=== PATIENT | female | born 1955 | race Caucasian/White ===

== ENCOUNTER → 2016-07-29 | Outpatient (CLI) | payer BC ==
--- NOTE | 2016-07-29 15:31 | REPMRS ---
Patient History The patient states she had a clinical breast exam in 07/2016. Patient is postmenopausal. No known family history of cancer. Implants in both breasts, 2005. Digital Woman Screen Mammo: July 29, 2016 - Exam #: [id number] Bilateral CC and MLO view(s) were taken. Technologist: Natalie Huizar Technologist Prior study comparison: July 28, 2015, digital woman screen mammo performed at [facility]. July 24, 2014, digital woman screen mammo performed at [facility]. July 24, 2013, digital woman screen mammo performed at [facility]. FINDINGS: There are scattered fibroglandular densities. The visualized implant margins are smooth. Breast parenchymal density pattern is essentially symmetric. No dominant mass, clustered microcalcification, or archetectural distortion is evident on either side. No significant changes when compared with prior studies. ASSESSMENT: BI-RADS/ACR category 2 mammogram. Benign finding(s). Recommendation Routine screening mammogram of both breasts in 1 year (for women over age 40). Electronically Signed By: Rodolfo Greenberg MD 07/29/16 [id number]
== END | disposition home or self-care (01) ==
LOC: M WHC 13:10
PROVIDERS: ATTEND Nurse Practitioner Family
DX: Z12.31 Encounter for screening mammogram for malignant neoplasm of breast (principal); Z78.0 Asymptomatic menopausal state; Z98.82 Breast implant status

== ENCOUNTER → 2017-01-30 | Outpatient (CLI) | payer BC ==
--- NOTE | 2017-01-31 04:30 | REP ---
Clinical: Pelvic pain and enlarged uterus by physical examination . Technique: Transabdominal pelvic ultrasound followed by transvaginal examination for better evaluation of the endometrium and adnexa. Findings: Bladder is unremarkable and measures 9.9 x 9.2 x 2.9 cm . Enlarged heterogeneous myomatous uterus measures 9.1 x 6.7 x 8.6 cm. The endometrial complex measures 4.4 mm thickness and a 1.4 cm focal area of debris versus polyp cannot be excluded or differentiated. Submucosal lower uterine segment fibroid measures 2.4 cm maximal diameter. Right posterior subserosal fibroid towards the fundus measures 2.8 cm maximal diameter. Right anterior subserosal fibroid towards the fundus measures 1.6 cm maximal diameter. Left posterior subserosal fibroid measures 2.1 cm maximal diameter. Left anterior subserosal fibroid measures 2.5 cm maximal diameter. Bilateral ovaries are normal in appearance. Right ovary measures 3.7 x 2.8 x 2.5 cm with 2.1 cm physiologic cyst. Left ovary measures 4.0 x 2.4 x 3.4 cm. No pelvic free fluid or adnexal mass lesion identified . Impression: 1. heterogeneous, enlarged, myomatous uterus as described above. 2. Cannot exclude 1.4 cm endometrial polyp versus focal endocervical debris. Signed by Raad López MD 01/31/2017 04:22 A
== END ==
LOC: M WHC 09:49
PROVIDERS: ATTEND Nurse Practitioner Family
DX: N85.2 Hypertrophy of uterus (principal)

== ENCOUNTER → 2017-05-25 | Outpatient (CLI) | payer BC ==
--- NOTE | 2017-05-25 16:51 | REP ---
Clinical: Myomatous uterus. Technique: Transabdominal pelvic ultrasound followed by transvaginal examination for better evaluation of the endometrium and adnexa with color Doppler evaluation of the ovaries. Comparison: 01/30/2017. Findings: Bladder measures approximately 9.0 x 8.6 x 2.9 cm. Heterogeneous enlarged anteverted myomatous uterus measures greater than 10.5 x 7.1 x 8.7 cm. A significant amount of endocervical fluid is appreciated which distends the endometrial canal the endometrial complex measures approximately 9.7 mm excluding fluid. Few discrete fibroids are appreciated including 1.8 cm and 3.6 cm right intramural fibroids as well as 3.3 cm left intramural fibroid. Further less conspicuous myomatous changes are appreciated but difficult to definitively delineate or measure. Right ovary is normal in appearance and vascularity. Right ovary measures 2.6 x 2.6 x 2.4 cm and includes 1.8 cm involuting follicle; RI = 0.65. Left ovary versus pedunculated fibroid in the left adnexa measures 3.3 x 2.9 x 2.7 cm. Impression: Enlarged myomatous heterogeneous uterus with large amount of endocervical fluid appreciated. Findings are relatively abnormally given the patient's age and require correlation. Signed by Raad López MD 05/25/2017 04:42 P
== END ==
LOC: M RAD 15:41
PROVIDERS: ATTEND Obstetrics & Gynecology
DX: D25.9 Leiomyoma of uterus, unspecified (principal); N93.9 Abnormal uterine and vaginal bleeding, unspecified

== ENCOUNTER → 2017-06-27 | Outpatient (CLI) | payer BC ==
[~2017-06-27] MED LIST: PROHANCE 279.3MG/ML 15ML VIAL (A9576) As Ordered ONE; PROHANCE 279.3MG/ML 5ML VIAL (A9576) As Ordered ONE
--- NOTE | 2017-06-28 16:28 | REP ---
MRI pelvis without and with IV gadolinium: History: Fibroid uterus. Postmenopausal vaginal bleeding. Comparison sonography is from May 25, 2017 and January 30, 2017. Gadolinium enhancement dose of 17 mL of intravenous ProHance. Findings: Axial, oblique coronal and sagittal imaging planes are utilized. T1 and T2-weighted sequences include spin-echo, fast spin echo, inversion recovery, and diffusion weighted images at low and high V values as well as ADC images. MRI findings: An enlarged retroverted retroflexed fibroid uterus is seen. Overall uterine dimensions are 10.2 by 8.4 by 9.6 cm. There is a moderate hydrometra with distension of the fundal endometrial cavity. This contains T1 hyperintense, T2 hyperintense proteinaceous fluid. On T2-weighted scans there are typical low T2 signal intensity submucosal and intramural fibroids scattered about the uterus. The largest of these is on the right side of the lower uterine segment and cervix measuring 2.6 cm. There is a right fundal fibroid lesion measuring 1.9 cm in diameter. There are five or six of these predominantly subserosal fibroids. Pedunculated narrow pedicle fibroids are seen in the posterior subserosal surface of the uterus on the left side including a fibroid lesion measuring 3.7 by 2.9 cm. There are five or six of these pedunculated narrow pedicle subserosal fibroids along the surface of the uterus. The urinary bladder is displaced and compressed anteriorly. There is evidence of a hemorrhagic cyst in the right ovary measuring 3.0 cm x 2.2 by 1.6 cm. This has a hemosiderin ring around its periphery. The left ovary is unremarkable. There is no evidence of pelvic adenopathy. T1 and T2-weighted scans of the uterus demonstrate a somewhat eccentric polypoid mass effect along the right side anterior aspect of the endometrial and endocervical cavity. On high V value, diffusion weighted scans this shows heterogeneous hyperintensity in an area measuring 3.4 cm. There is low signal intensity on corresponding ADC images indicating restricted diffusion here. This area is isointense with uterine myometrium on unenhanced T1-weighted scans and there is heterogeneous slightly decreased area of enhancement corresponding to this on postcontrast images. T2-weighted coronal scans demonstrate eccentric thickening of the endometrium with mass effect approximately 3-4 cm in length along the uterus. This combined with the hydrometra suggests an obstructive endometrial neoplasm. These changes are not considered typical of a fibroid. The other fibroids show no evidence of either restricted or facilitated diffusion. Impression: Enlarged retroverted retroflexed fibroid uterus. The additional finding of moderate hydrometra and endometrial mass effect showing restricted diffusion in the lower uterine segment are very suggestive of endometrial malignancy. No adenopathy or ascites seen. Multiple benign-appearing fibroids are noted including several pedunculated subserosal fibroids. Signed by Toy Greenberg MD 06/28/2017 05:00 P
== END ==
LOC: M RAD 13:54
PROVIDERS: ATTEND Obstetrics & Gynecology
DX: D25.9 Leiomyoma of uterus, unspecified (principal); N95.0 Postmenopausal bleeding
CPT/HCPCS: 72197; A9576

== ENCOUNTER → 2017-07-31 | Outpatient (REF) | payer BC | LOC: M SFHCWAGY 15:08 | DX: Z12.4 Encounter for screening for malignant neoplasm of cervix (principal); Z12.31 Encounter for screening mammogram for malignant neoplasm of breast ==

== ENCOUNTER → 2017-07-31 | Outpatient (CLI) | payer BC | LOC: M WHC 14:31 | DX: Z12.31 Encounter for screening mammogram for malignant neoplasm of breast (principal) ==

== ENCOUNTER → 2017-11-09 | Outpatient (CLI) | payer BC | LOC: M ONCR 10:25 | DX: C54.1 Malignant neoplasm of endometrium (principal) | CPT/HCPCS: G0463 ==

== ENCOUNTER → 2018-02-20 | Outpatient (CLI) | payer BC | LOC: M ONCR 13:09 | DX: C54.1 Malignant neoplasm of endometrium (principal) | CPT/HCPCS: G0463 ==

== ENCOUNTER 2018-03-02 09:49 | Outpatient (RCR) | payer BC | END 2018-03-09 | LOC: M ONCR 09:49 | DX: C54.1 Malignant neoplasm of endometrium (principal) | CPT/HCPCS: 77334 ==

== ENCOUNTER 2018-03-14 09:30 | Outpatient (RCR) | payer BC | END 2018-04-08 | LOC: M ONCR 03-15 09:30 | DX: C54.9 Malignant neoplasm of corpus uteri, unspecified (principal) | CPT/HCPCS: 77300 ==

== ENCOUNTER 2018-04-09 15:10 | Outpatient (RCR) | payer BC | END 2018-05-09 | LOC: M ONCR 04-10 15:28 | DX: C54.9 Malignant neoplasm of corpus uteri, unspecified (principal) | CPT/HCPCS: 77336 ==

== ENCOUNTER → 2018-05-30 | Outpatient (CLI) | payer BC ==
[2018-05-30 18:14] LABS: BLOOD UREA NITROGEN 21 MG/DL (7-18)
[2018-05-30 18:14] LABS: CREATININE FOR GFR 0.84 MG/DL (0.55-1.30); GLOMERULAR FILTRATION RATE > 60.0 (>45)
== END ==
LOC: M ONCR 14:37
DX: C54.9 Malignant neoplasm of corpus uteri, unspecified (principal)
CPT/HCPCS: 82565

== ENCOUNTER → 2018-06-07 | Outpatient (CLI) | payer BC ==
[~2018-06-07] MED LIST changes: +GASTROGRAFIN SOLUTION 30ML (Q9963) As Ordered; +ISOVUE-370 76% 100ML VIAL (Q9967) As Ordered; -PROHANCE 279.3MG/ML 15ML VIAL (A9576) As Ordered ONE; -PROHANCE 279.3MG/ML 5ML VIAL (A9576) As Ordered ONE
== END ==
LOC: M RAD 13:01
DX: C54.1 Malignant neoplasm of endometrium (principal); Z90.710 Acquired absence of both cervix and uterus; R91.8 Other nonspecific abnormal finding of lung field
CPT/HCPCS: Q9963

== ENCOUNTER → 2018-06-19 | Outpatient (CLI) | payer BC ==
[~2018-06-19] MED LIST changes: -GASTROGRAFIN SOLUTION 30ML (Q9963) As Ordered
== END ==
LOC: M RAD 13:51
DX: C54.1 Malignant neoplasm of endometrium (principal); Z97.8 Presence of other specified devices
CPT/HCPCS: Q9967

== ENCOUNTER 2018-07-30 14:13 | Outpatient (RCR) | payer BC | END 2018-08-09 | LOC: M ONCR 14:13 | PROVIDERS: ATTEND Radiology Radiation Oncology | DX: C54.1 Malignant neoplasm of endometrium (principal) ==

== ENCOUNTER 2018-09-10 15:09 | Outpatient (RCR) | payer BC | END 2018-10-07 | LOC: M ONCR 15:09 | PROVIDERS: ATTEND Radiology Radiation Oncology | DX: C54.1 Malignant neoplasm of endometrium (principal) ==

== ENCOUNTER → 2018-10-10 | Outpatient (CLI) | payer BC ==
--- NOTE | 2018-10-10 11:58 | REPMRS ---
Patient History The patient states she had a clinical breast exam in 10/2018. Patient is postmenopausal, has history of endometrial cancer at age 61, and had previous chemotherapy at age 61. No known family history of cancer. Implants in both breasts, 2005. 3D TOMOSYNTHESIS WAS PERFORMED. Digital Woman Screen Mammo: October 10, 2018 - Exam #: [id number] Bilateral MLO, CC, CCID, and MLOID view(s) were taken. Technologist: Karo Jean, Technologist Prior study comparison: July 31, 2017, digital woman screen mammo performed at [facility]. July 29, 2016, digital woman screen mammo performed at [facility]. FINDINGS: There are scattered fibroglandular densities. There has been no change in the appearance of the mammogram from the prior studies. There is a mild amount of residual fibroglandular tissue which is fairly symmetric. There is no interval development of dominant mass, architectural distortion, or clustered microcalcification suggestive of malignancy. Assessment: BI-RADS/ACR category 1 mammogram. Negative Mammogram. Recommendation Routine screening mammogram in 1 year (for women over age 40). This mammogram was interpreted with the aid of an FDA-approved computer-aided dectection system. Electronically Signed By: Richard Vanegas MD 10/10/18 [id number]
== END ==
LOC: M WHC 09:50
PROVIDERS: ATTEND Nurse Practitioner Family
DX: Z12.31 Encounter for screening mammogram for malignant neoplasm of breast (principal)

== ENCOUNTER → 2018-10-10 | Outpatient (REF) | payer BC ==
[2018-10-13 15:33] LABS: HPV HYBRID CAPTURE II Negative (Negative)
== END ==
LOC: M SFHCWAGY 10:15
PROVIDERS: ATTEND Nurse Practitioner Family
DX: Z12.4 Encounter for screening for malignant neoplasm of cervix (principal)
CPT/HCPCS: 87624; G0123

== ENCOUNTER 2018-10-29 15:40 | Outpatient (RCR) | payer BC | END 2018-11-06 | LOC: M ONCR 15:40 | PROVIDERS: ATTEND Radiology Radiation Oncology | DX: C54.1 Malignant neoplasm of endometrium (principal) ==

== ENCOUNTER 2018-12-11 09:06 | Day surgery (SDC) | payer BC ==
[~2018-12-11] VITALS: Ht 162.6 cm; Wt 80.6 kg
[~2018-12-11 09:06] MED LIST changes: +CETI5SOL3 PO; -ISOVUE-370 76% 100ML VIAL (Q9967) As Ordered; +ZOLO50TA PO
[2018-12-11] MEDS ORDERED: NS 1,000 ML IV ONE (09:30)
[2018-12-11] MEDS ORDERED: LIDOCAINE 2% INJ 100 MG/5 ML SDV (FOR ANES.) As Ordered ONE (10:43)
[2018-12-11] MEDS ORDERED: PROPOFOL 200 MG/20 ML VIAL As Ordered ONE (10:43)
--- NOTE | 2018-12-11 10:55 | ROOR ---
Patient Name: Ashley Self Procedure Date: 12/11/2018 10:04 AM Date of : 1955 Age: 62 Room: [facility] Gender: Female Note Status: Finalized Procedure: Colonoscopy Indications: Screening for colorectal malignant neoplasm Providers: Faustino Carrero MD Referring MD: Frida Davila NP Requesting Provider: Medicines: Monitored Anesthesia Care Complications: No immediate complications. Procedure: Pre-Anesthesia Assessment: - Prior to the procedure, a History and Physical was performed, and patient medications and allergies were reviewed. The patient is competent. The risks and benefits of the procedure and the sedation options and risks were discussed with the patient. All questions were answered and informed consent was obtained. Patient identification and proposed procedure were verified by the physician, the nurse and the anesthesiologist in the procedure room. Mental Status Examination: alert and oriented. Airway Examination: normal oropharyngeal airway and neck mobility. Respiratory Examination: clear to auscultation. CV Examination: normal. Prophylactic Antibiotics: The patient does not require prophylactic antibiotics. Prior Anticoagulants: The patient has taken no previous anticoagulant or antiplatelet agents. ASA Grade Assessment: II - A patient with mild systemic disease. After reviewing the risks and benefits, the patient was deemed in satisfactory condition to undergo the procedure. The anesthesia plan was to use monitored anesthesia care (MAC). Immediately prior to administration of medications, the patient was re-assessed for adequacy to receive sedatives. The heart rate, respiratory rate, oxygen saturations, blood pressure, adequacy of pulmonary ventilation, and response to care were monitored throughout the procedure. The physical status of the patient was re-assessed after the procedure. The Colonoscope was introduced through the anus and advanced to the terminal ileum, with identification of the appendiceal orifice and IC valve. The colonoscopy was performed without difficulty. The patient tolerated the procedure well. The quality of the bowel preparation was good. The terminal ileum, ileocecal valve, appendiceal orifice, and rectum were photographed. Scope insertion time was 3 minutes. Scope withdrawal time was 12 minutes. The total duration of the procedure was 15 minutes. Findings: The perianal and digital rectal examinations were normal. The terminal ileum appeared normal. Two sessile polyps were found in the transverse colon. The polyps were 8 to 12 mm in size. These polyps were removed with a hot snare. Resection and retrieval were complete. To close a defect after polypectomy, two hemostatic clips were successfully placed. There was no bleeding at the end of the procedure. Verification of patient identification for the specimen was done by the physician and nurse using the patient's name, date and medical record number. Estimated blood loss was minimal. A 5 mm polyp was found in the descending colon. The polyp was sessile. The polyp was removed with a cold snare. Resection and retrieval were complete. Two sessile polyps were found in the rectum. The polyps were 4 to 6 mm in size. These polyps were removed with a cold snare. Resection and retrieval were complete. Multiple small-mouthed diverticula were found from sigmoid to transverse colon. There was no evidence of diverticular bleeding. Non-bleeding external and internal hemorrhoids were found during retroflexion. The hemorrhoids were moderate. Impression: - The examined portion of the ileum was normal. - Two 8 to 12 mm polyps in the transverse colon, removed with a hot snare. Resected and retrieved. Clips were placed. - One 5 mm polyp in the descending colon, removed with a cold snare. Resected and retrieved. - Two 4 to 6 mm polyps in the rectum, removed with a cold snare. Resected and retrieved. - Moderate diverticulosis from sigmoid to transverse colon. There was no evidence of diverticular bleeding. - Non-bleeding external and internal hemorrhoids. Recommendation: - Patient has a contact number available for emergencies. The signs and symptoms of potential delayed complications were discussed with the patient. Return to normal activities tomorrow. Written discharge instructions were provided to the patient. - High fiber diet. - Continue present medications. - Await pathology results. - Repeat colonoscopy in 3 - 5 years for surveillance based on pathology results. - Based on the biopsy results you will receive a phone call from GI clinic in 2-3 weeks to review the pathology results AND/OR your results will be faxed to your Primary care physician. - Return to primary care physician. Faustino Carrero MD Faustino Carrero MD 12/11/2018 10:55:03 AM Electronically signed by Faustino Carrero MD Number of Addenda: 0 Note Initiated On: 12/11/2018 10:04 AM Estimated Blood Loss: Estimated blood loss was minimal.
[2018-12-11 11:15] VITALS: BP 113/58
== END 2018-12-11 11:35 | disposition home or self-care (01) ==
LOC: M OPP 09:06
PROVIDERS: ATTEND Internal Medicine Gastroenterology
DX: Z12.11 Encounter for screening for malignant neoplasm of colon (principal); K64.0 First degree hemorrhoids; D12.3 Benign neoplasm of transverse colon; K62.1 Rectal polyp; D12.4 Benign neoplasm of descending colon; K57.30 Diverticulosis of large intestine without perforation or abscess without bleeding; Z79.899 Other long term (current) drug therapy; F17.210 Nicotine dependence, cigarettes, uncomplicated

== ENCOUNTER → 2019-02-15 | Outpatient (CLI) | payer BC ==
[~2019-02-15] MED LIST changes: +GASTROGRAFIN SOLUTION 30ML (Q9963) As Ordered ONE; +ISOVUE-370 76% 100ML VIAL (Q9967) As Ordered ONE
--- NOTE | 2019-02-16 09:59 | REP ---
CT ABDOMEN AND PELVIS WITH ORAL AND IV CONTRAST: 02/15/2019. Clinical history: Follow-up endometrial carcinoma. Palpable mass left lower quadrant port site. Comparison: CT 06/07/2018. Technique: Oral Gastrografin mixture with two doses per our protocol followed by bolus of 100 ml Isovue 370 with venous and delayed phase imaging. Coronal and sagittal reconstructions provided. Findings: The lung bases show minor dependent atelectatic change without infiltrate or effusion. The inferior aspects of breast implants are noted. Heart size not enlarged. There is no pericardial thickening or effusion. No hiatal hernia. There is no hepatomegaly or splenomegaly. No hepatic mass or biliary dilatation. I see no ascites. Gallbladder shows no calcified stone or mass. Pancreas shows no mass, ductal dilatation or inflammatory change. Adrenal glands are normal. The right kidney shows no hydronephrosis, stone, mass or cyst. No hydroureter. The left kidney shows delayed function with less contrast enhancement. There is some mild hydronephrosis and hydroureter which is seen down to the level of the left iliac adenopathy. This is causing partial obstruction and delayed/diminished function. This is a new finding entirely since the previous May examination. Abdominal portion of the colon without mass, wall thickening, colitis or diverticulitis. Small bowel loops contrast filled without air-fluid levels or definite obstruction. I see no perforation or free air. In the subcutaneous fat of the abdominal wall superficial to the left rectus abdominis muscle, there is a new 3.5 x 2.6 x 3.1 cm solid mass. It is slightly less dense centrally. CT attenuation values are in the 50s. This is similar to adjacent muscle and confirms solid lesion. No abnormal thickening of that muscle. There is a plain separation between the mass and the fascia of the rectus abdominis. The bone windows show degenerative disc changes at L5-S1, less at other levels and no spondylolysis or spondylolisthesis. No destructive lesions. The lower ribs visible were unremarkable. CT pelvis: The sacrum and SI joints, iliac bones, ischia, acetabuli and pubic symphysis show only minimal degenerative changes and no destructive lesions or fractures. Small bowel loops in the pelvis are fluid filled without abnormal dilatation. Abdominal and pelvic portions of colon without any acute finding. There is asymmetric appearance to the left iliac region where there are nodes adjacent to the internal and external iliac arteries and veins. These appear to be the cause for hydronephrosis newly enveloped on that left side. I do not see changes in the interval at the surgical site from hysterectomy however some mild stranding in the fat in this region, somewhat less than on the previous study. No ventral or inguinal hernia nor pathologic sized inguinal adenopathy. Bladder without mass, wall thickening or stone. Visualized distal ureters without dilatation or stone. Impression: 1. There is a new subcutaneous soft tissue mass in the anterior left abdominal wall about the level of the iliac crest and just above it, but immediately superficial to the rectus fascia on that left side. It is at and just above that iliac crest at the level of the aortic bifurcation. This is a 3.5 cm solid lesion and highly suspicious for malignancy. 2. New left sided hydronephrosis and hydroureter to the level of the iliac nodes in the left pelvis at and just above the takeoff of the internal iliac from external iliac artery. This adenopathy contributes to the hydronephrosis. There is no stone. Delayed function/enhancement of that left kidney, new from the previous study. Right kidney collecting system, ureter normal. 3. Postoperative changes in the pelvis with no definite new mass at the vaginal cuff or worsening postoperative changes. Electronically Signed by Won Arguello MD 02/16/2019 10:12 A
== END ==
LOC: M RAD 12:51
PROVIDERS: ATTEND Obstetrics & Gynecology Gynecologic Oncology
DX: C54.1 Malignant neoplasm of endometrium (principal); N13.39 Other hydronephrosis; N13.4 Hydroureter
CPT/HCPCS: 74177; Q9963; Q9967

== ENCOUNTER → 2019-05-21 | Outpatient (CLI) | payer BC ==
--- NOTE | 2019-05-22 04:07 | REP ---
Clinical: Endometrial carcinoma. Comparison: 02/15/2019. Technique: Axial contrast enhanced images from the lung bases to the pubic symphysis using oral (per protocol) and 100 ml Isovue 370 intravenous contrast material with delayed images of the abdomen as well as coronal and sagittal re-formations. Findings: Metastatic focus in the subcutaneous tissues superficial to the left rectus muscle is again identified and appears minimally increased in size. Metastatic focus in the underlying left rectus muscle measures 2.6 cm maximal diameter (image 85). Metastatic lesion in the right gabi pelvis measures 2.8 cm maximal diameter (image 115) possibly pathologic lymph node. Retroperitoneal adenopathy along the left gabi pelvis at the level of the left common iliac artery extending inferiorly along the left pelvic sidewall (images 93 - 110) noted. Liver, spleen, pancreas, gallbladder, bilateral adrenal glands and right kidney are normal. Left kidney demonstrates ureteral stent in satisfactory position and previously noted hydronephrosis has resolved. The enteric system is without obstruction or acute inflammatory process. Pelvis demonstrates normal bladder and postsurgical changes related to prior hysterectomy for endometrial carcinoma. No ascites, acute inflammatory stranding, or new intra-abdominal/pelvic mass. Lung bases are clear. Visualized heart and pericardium normal. Evidence of prior bilateral mammoplasty. Impression: 1. Metastatic focus in the subcutaneous tissues overlying the left rectus muscle and metastatic focus within the left rectus muscle appears slightly more prominent than prior examination. 2. Left retroperitoneal and right pelvic adenopathy. Electronically Signed by Raad López MD 05/22/2019 03:59 A
== END ==
LOC: M RAD 11:08
PROVIDERS: ATTEND Obstetrics & Gynecology Gynecologic Oncology
DX: C54.1 Malignant neoplasm of endometrium (principal); R59.0 Localized enlarged lymph nodes
CPT/HCPCS: 74177; Q9963; Q9967

== ENCOUNTER → 2019-11-26 | Outpatient (CLI) | payer BC ==
[~2019-11-26] MED LIST changes: -ISOVUE-370 76% 100ML VIAL (Q9967) As Ordered ONE; +ISOVUE-370 76% 100ML VIAL As Ordered ONE
--- NOTE | 2019-11-27 05:50 | REP ---
Clinical: History of endometrial carcinoma. Technique: Axial contrast enhanced images from the lung bases to the pubic symphysis using oral (per protocol) and 100 ml Isovue 370 intravenous contrast material with delayed images of the abdomen. Coronal and sagittal re-formations were obtained. Comparison: 05/21/2019, 06/07/2018. Findings: Lung bases demonstrate a 2 cm area of density in the medial right middle lobe (image 12) which represents a new finding and is concerning for small consolidation or mass. Liver, spleen, pancreas, gallbladder, bilateral adrenal glands and right kidney/ureter are normal. Left kidney demonstrates ureteral stent in satisfactory position extending into the bladder without evidence for hydroureteronephrosis. The enteric system is without obstruction or acute inflammatory process. Evaluation of the pelvis demonstrates partially collapsed normal bladder and evidence of prior hysterectomy. Small amount of amorphous soft tissue/presumed adenopathy is suggested within the mid to distal left gabi pelvis adjacent to the ureter which has noticeably decreased when compared to prior examination. The adenopathy in the right gabi pelvis on prior examination which measures roughly 2.8 cm diameter has also decreased to an amorphous soft tissue density measuring roughly 1.5 cm diameter. The lymph node in the subcutaneous tissue superficial to the left rectus muscle is again identified but decreased from 3.4 cm to 2.0 cm maximal diameter. No new adenopathy, abdominopelvic mass or ascites is appreciated. No ascites. No free air. Abdominal aorta and vasculature appears normal and without aneurysm or dissection. Musculoskeletal structures are intact and without focal osseous abnormality. Impression: 1. 2 cm density within the medial right middle lobe of the lung concerning for small consolidation or mass/metastatic focus. Short-term follow-up chest CT is recommended. 2. Left ureteral stent in satisfactory position without evidence for hydronephrosis. 3. Pelvic adenopathy and lymph node in the left anterior abdominal subcutaneous tissue decreased from prior examination. No new adenopathy, ascites, or metastatic focus within the abdomen/pelvis appreciated. Electronically Signed by Raad López MD 11/27/2019 05:42 A
== END ==
LOC: M RAD 11:33
PROVIDERS: ATTEND Nurse Practitioner
DX: C54.1 Malignant neoplasm of endometrium (principal)
CPT/HCPCS: 74177; Q9963; Q9967

== ENCOUNTER → 2020-01-15 | Outpatient (REF) | payer BC ==
[~2020-01-15] MED LIST changes: -GASTROGRAFIN SOLUTION 30ML (Q9963) As Ordered ONE; -ISOVUE-370 76% 100ML VIAL As Ordered ONE
== END ==
LOC: M SFHCWAGY 15:06
PROVIDERS: ATTEND Nurse Practitioner Family
DX: Z12.72 Encounter for screening for malignant neoplasm of vagina (principal); N95.2 Postmenopausal atrophic vaginitis

== ENCOUNTER → 2020-01-15 | Outpatient (CLI) | payer BC ==
--- NOTE | 2020-01-15 12:14 | REPMRS ---
Patient History The patient states she had a clinical breast exam in January 2020. No known family history of cancer. Implants in both breasts, 2005. 3D TOMOSYNTHESIS WAS PERFORMED. [facility] lifetime risk for breast cancer is 5.2%. [facility] Digital Woman Screen Mammo: January 15, 2020 - Exam #: [id number] Bilateral CC and MLO view(s) were taken. Technologist: Laurita Do, Technologist Prior study comparison: October 10, 2018, bilateral digital woman screen mammo performed at [facility]. July 31, 2017, digital woman screen mammo performed at [facility]. FINDINGS: The breast tissue is heterogeneously dense. This may lower the sensitivity of mammography. There has been no change in the appearance of the mammogram from the prior studies. There is a moderate amount of residual fibroglandular tissue which is fairly symmetric. There is no interval development of dominant mass, areas of architectural distortion, or clustered microcalcification typical of malignancy. Assessment: BI-RADS/ACR category 1 mammogram. Negative Mammogram. Recommendation Routine screening mammogram in 1 year (for women over age 40). This mammogram was interpreted with the aid of an FDA-approved computer-aided dectection system. Electronically Signed By: Richard Vanegas MD 01/15/20 [id number]
== END ==
LOC: M WHC 10:25
PROVIDERS: ATTEND Nurse Practitioner Family
DX: Z12.31 Encounter for screening mammogram for malignant neoplasm of breast (principal)

== ENCOUNTER → 2020-02-25 | Outpatient (CLI) | payer BC ==
[~2020-02-25] MED LIST changes: +GASTROGRAFIN SOLUTION 30ML (Q9963) ONE; +ISOVUE-370 76% 100ML VIAL ONE
--- NOTE | 2020-03-23 10:51 | REP ---
CT OF THE CHEST WITH IV CONTRAST FOR FOLLOW-UP OF ENDOMETRIAL CARCINOMA COMPARISON: 06/19/2018. FINDINGS: There is a right IJ central venous catheter with the tip in the superior vena cava, unchanged. There are bilateral breast implants, unchanged. There no lung nodules or masses. There are no infiltrates or pleural effusions. There is no mediastinal, hilar, or axillary lymph node enlargement. This is unchanged. The thoracic aorta is unremarkable. Cardiac size is normal. There is no pericardial effusion. IMPRESSION: There is no evidence of metastatic disease or acute cardiopulmonary findings. There is a right IJ Infusaport catheter, unchanged. No significant change from the prior study. MTDD
--- NOTE | 2020-03-23 10:54 | REP ---
CT OF THE ABDOMEN AND PELVIS WITH IV AND BOWEL CONTRAST This study is performed contiguously with the chest CT this same date for restaging follow-up of endometrial carcinoma. COMPARISON: 11/26/2019 and 02/15/2019. FINDINGS: On the comparison study of 11/26/2019, there was a focal 2 cm area of density in the medial segment of the right lung middle lobe. This is no longer present on the current study and likely represented transient atelectasis. The hepatic parenchyma is homogeneous. The gallbladder, pancreas, and spleen are unremarkable. The adrenals are unremarkable. The kidneys are unremarkable. The previous left ureteral stent has been removed. There is no hydronephrosis or perinephric stranding. The abdominal aorta is unremarkable. There is no periaortic adenopathy or mass. There is no ascites. The bowel loops are unremarkable. The mesentery is unremarkable. PELVIS: The previous bilateral pelvic side wall adenopathy continues to decrease and is barely visible today. There is a hysterectomy. The vaginal cuff and adnexa are unremarkable. The bladder is unremarkable. There is no ascites. The pelvic bowel loops are unremarkable. There is a subcutaneous lymph node anterior to the left rectus abdominis decreased in size, today measuring 13 mm short axis. This previously measured 15 mm. IMPRESSION: The density in the medial segment of the right lung middle lobe on the prior study has resolved compatible with transient atelectasis. The left ureteral stent has been removed. There is no hydronephrosis. The bilateral pelvic adenopathy continues to decrease and is barely visible on the study today. The subcutaneous lymph node anterior to the left rectus abdominis has decreased in size. There is no new adenopathy, mass, or ascites. There are no lytic, blastic, or destructive skeletal changes. MTDD
== END ==
LOC: M RAD 11:53
PROVIDERS: ATTEND Nurse Practitioner
DX: C54.1 Malignant neoplasm of endometrium (principal); C78.6 Secondary malignant neoplasm of retroperitoneum and peritoneum; I82.0 Budd-Chiari syndrome; Z98.82 Breast implant status; Z95.828 Presence of other vascular implants and grafts
CPT/HCPCS: 71260; 74177; Q9963; Q9967

== ENCOUNTER → 2021-01-19 | Outpatient (CLI) | payer MEDICARE, BC ==
[~2021-01-19] MED LIST changes: -GASTROGRAFIN SOLUTION 30ML (Q9963) ONE; -ISOVUE-370 76% 100ML VIAL ONE
--- NOTE | 2021-01-19 10:50 | REPMRS ---
Patient History The patient states she has not had a clinical breast exam in over a year. No known family history of cancer. Implants in both breasts, 2004. No breast complaints or changes today Patient signed the MRS sheet 1st covid vaccine in Jul.-left arm-Moderna 2nd covid vaccine in Aug.-left arm-patient doesn't know exact dates of either Priors on PACS Patient Identification Verified Digital Woman Screen Mammo: January 19, 2021 - Exam #: [id number] Bilateral CC and MLO view(s) were taken. Technologist: Laurita Do, Technologist Prior study comparison: January 15, 2020, bilateral digital woman screen mammo performed at [facility]. October 10, 2018, bilateral digital woman screen mammo performed at [facility]. FINDINGS: The breast tissue is heterogeneously dense. This may lower the sensitivity of mammography. Screening. Digital screening (2D) mammography was performed bilaterally in the CC and MLO projections. Additionally, breast tomosynthesis (3D mammography) was performed bilaterally in the CC and MLO projections. Todays exam was compared to the prior exam/exams.Both Itzel and non-Itzel views were obtained. By history, the patient has no complaints of a palpable breast abnormality or other significant breast complaints. The breasts are unchanged in size and shape.Once again, dense heterogenous fibroglandular elements are seen bilaterally in a stable appearing pattern but to such a degree that the sensitivity of the mammogram in detecting cancer is decreased. There are no kole-soft tissue densities or spiculated masses. There is no internal architectural distortion. Once again, stable benign appearing calcifications are seen.There are no suspicious kole-calcific clusters. Skin thickening or nipple retraction is not present. IMPRESSION: BI-RADS Category 2- Benign Findings. There is no evidence of malignant alteration of the breasts. Followup examination recommended in one year. The Volpara volumetric breast density category is C, the breasts are heterogenously dense which may obscure small masses. This mammogram was read with the assistance of [employer],an FDA approved computer aided detection system for mammography. The lifetime Tyrer-Cuzick score is 4.9 % Due to the density of the breasts or Tyrer Cuzick score of 20% or greater, MRI/whole breast screening ultrasound is warranted. Negative x-ray reports should not delay surgical consultation if a dominant or clinically suspicious mass is present. Not all breast cancers can be identified by mammography. Therefore, we recommend that you continue to perform regular breast self-examination and physical examination and then promptly contact your physician of any concerns or changes. Adenosis and dense breasts may obscure an underlying neoplasm. Assessment: BI-RADS/ACR category 2 mammogram. Benign Findings. Recommendation Routine screening mammogram of both breasts in 1 year. Electronically Signed By: Vivek Russo DO 01/19/21 [id number]
== END ==
LOC: M WHC 08:54
PROVIDERS: ATTEND Nurse Practitioner Women's Health
DX: Z12.31 Encounter for screening mammogram for malignant neoplasm of breast (principal)
CPT/HCPCS: 77063; 77067; G0463

== ENCOUNTER → 2021-01-27 | Outpatient (CLI) | payer MEDICARE, BC ==
[~2021-01-27] MED LIST changes: +GASTROGRAFIN SOLUTION 30ML (Q9963) As Ordered ONE; +ISOVUE-370 76% 100ML VIAL As Ordered ONE
--- NOTE | 2021-01-27 15:16 | REP ---
INDICATION: ENDOMETRIAL CA. COMPARISON: Comparison chest CT study February 25, 2020.. TECHNIQUE: Helical scanning is acquired following the intravenous injection of 100 mL of Isovue 370. 3 mm axial images re-formatted. Coronal and sagittal MPR images are generated. 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 Patient is status post bilateral subpectoral breast augmentation implants as previously noted. There is no evidence of pleural or pericardial effusion. No hilar or mediastinal mass or adenopathy is seen. The visualized upper abdominal structures are unremarkable. On bone window settings, no bony destructive lesion is seen. However, in the lung parenchyma, today's CT study demonstrates numerous new sub cm solid and cavitary pulmonary nodules suggestive of metastatic disease. Many of the small nodules are cavitary and septic emboli would be in the differential as well although this is considered less likely given the clinical scenario. None is greater than 8 mm in diameter. There are in both upper and lower lobes bilaterally as well as in the right middle lobe. IMPRESSION: Numerous new subcentimeter solid and cavitary pulmonary nodules suggestive of metastatic disease to the lungs. <Electronically signed by Rodolfo Greenberg > 01/27/21 [id number]
--- NOTE | 2021-01-27 15:42 | REP ---
INDICATION: ENDOMETRIAL CA. COMPARISON: 02/25/2020, 11/26/2019, 05/21/2019 CT AP. TECHNIQUE: Oral Gastrografin mixture per our bowel contrast protocol followed by bolus of 100 mL Isovue 370 scanning through the abdomen and pelvis. Delayed images through the abdomen. FINDINGS: CT abdomen. Please see the CT chest report this date for details about the lower chest on this study. Heart is not enlarged. Some mild pericardial thickening anteriorly unchanged. There is no hiatal hernia. Stomach with oral contrast is within but no mass or wall thickening. Liver is not enlarged. It is homogeneous, without focal hepatic mass nor intrahepatic biliary dilatation. I see no splenomegaly or focal splenic lesion. Gallbladder shows no calcified stone or mass. Adrenal glands were normal pancreas shows no mass, ductal dilatation, peripancreatic adenopathy or fluid collection. Bilateral kidneys show symmetric enhancement without hydronephrosis, mass, stone or perinephric fluid abdominal aorta without aneurysm or dissection. The there is an extrarenal pelvis noted the ureters show normal course the bladder with the left ureter showing slight distension likely related to previous obstruction and stent placement, nothing acute in unchanged. Small bowel loops contrast filled throughout the abdomen and pelvis without air-fluid levels. Abdominal portion of colon with stool fluid and gas in the right, transverse and both flexures. Stool and gas in the descending colon as well without mass. Lung window review of all CT slices shows no perforation or free air. On images 61 and 62 in the midline raphe, there is 11 mm soft tissue nodule increased from about 8 mm the previous study, it is not attached to adjacent bowel loop and suggests a metastatic nodule. In the left rectus muscle laterally on image 76 there is a 2.9 x 2.2 cm rim enhancing intramuscular mass there is probably not much changed in size from the previous study. Just above and superficial to this in the subcutaneous fat abutting the superficial fascia of the left rectus muscle, there is a 17 mm subcutaneous nodule which was 20 mm on the previous study. I would imagine that this is palpable and is about 8 cm from the umbilicus at that level. On image 70 just below the midline fascia are 2 small nodular densities, 1 isolated the other possibly abutting the bowel there, but I suspect small lymph nodes with the larger 9 and a smaller 5 mm. Bone windows show lumbar and lower thoracic spine and their posterior elements without acute findings. Visualized ribs intact. CT pelvis: The bony sacrum shows sclerosis at the SI joints peripherally without any acute destructive lesion or fracture. Iliac wings, acetabulae, ischia and the pelvis show some degenerative changes that appear stable and are without definite destructive lesion. Small bowel loops in the pelvis contrast filled without dilatation. Previous pelvic adenopathy appears largely resolved. There is less stranding in the pelvic fat. Distal left colon and sigmoid collapsed without signs of colitis or diverticulitis. Uterus is absent the vaginal cuff intact. The bladder is MT and ureters without definite stone. No bladder calculus or mass on this limited evaluation. No ventral or inguinal hernia nor pathologic sized inguinal adenopathy. IMPRESSION: 1. Subcutaneous node superficial to the left rectus muscle slightly smaller than the previous study the intramuscular lesion of the adjacent rectus muscle is unchanged. 2. 11 mm node in the midline tissue between the rectus muscles on image 61 the upper abdomen and below this a few cm adjacent to the deep fascia are 2 small nodes 5 and 9 mm respectively which I cannot see in previous studies. 3. Previous pelvic lymphadenopathy is largely resolved. Prior hysterectomy. No definite pelvic mass. 4. Solid organs in the upper abdomen, gallbladder, stomach, small bowel loops and colon all without acute finding. No ascites or free air. <Electronically signed by Won Arguello > 01/27/21 0515
== END ==
LOC: M RAD 12:20
PROVIDERS: ATTEND Obstetrics & Gynecology Gynecologic Oncology
DX: C78.6 Secondary malignant neoplasm of retroperitoneum and peritoneum (principal); I10 Essential (primary) hypertension; E03.9 Hypothyroidism, unspecified
CPT/HCPCS: 71260; 74177; Q9963; Q9967

== ENCOUNTER → 2021-05-06 | Outpatient (CLI) | payer MEDICARE, BC ==
--- NOTE | 2021-05-06 10:47 | REPVR ---
PROCEDURE INFORMATION: Exam: CT Chest With Contrast; Diagnostic Exam date and time: 05/06/2021 10:04 AM Age: 65 years old Clinical indication: Condition or disease; Other: Endometrial CA TECHNIQUE: Imaging protocol: Diagnostic computed tomography of the chest with contrast. Radiation optimization: All CT scans at this facility use at least one of these dose optimization techniques: automated exposure control; mA and/or kV adjustment per patient size (includes targeted exams where dose is matched to clinical indication); or iterative reconstruction. Contrast material: ISOVUE 370; Contrast volume: 100 ml; Contrast route: INTRAVENOUS (IV); COMPARISON: CT Chest with contrast 01/27/2021 2:21 PM FINDINGS: Tubes, catheters and devices: Right chest MediPort. Lungs: Centrilobular and paraseptal emphysema. Bilateral dependent atelectasis. Pleural spaces: Unremarkable. No pneumothorax. No pleural effusion. Heart: Mild atherosclerotic disease of coronary arteries. Aorta: Atherosclerotic disease of the thoracic aorta. Lymph nodes: Unremarkable. No enlarged lymph nodes. Bones/joints: Multilevel degenerative disease of thoracic spine. Soft tissues: Bilateral saline breast implants. Suggestion left intracapsular implant rupture. IMPRESSION: No acute findings. Electronically signed by: Maverick Mederos On 05/06/2021 10:46:24 AM
--- NOTE | 2021-05-06 10:57 | REPVR ---
PROCEDURE INFORMATION: Exam: CT Abdomen And Pelvis With Contrast Exam date and time: 05/06/2021 8:12 AM Age: 65 years old Clinical indication: Condition or disease; Cancer; Other: Endometrial; Additional info: Endometrial CA TECHNIQUE: Imaging protocol: Computed tomography of the abdomen and pelvis with contrast. Radiation optimization: All CT scans at this facility use at least one of these dose optimization techniques: automated exposure control; mA and/or kV adjustment per patient size (includes targeted exams where dose is matched to clinical indication); or iterative reconstruction. Contrast material: ISOVUE 370; Contrast volume: 100 ml; Contrast route: INTRAVENOUS (IV); COMPARISON: CT ABD PELVIS WITH CONTRAST 01/27/2021 2:21 PM FINDINGS: Liver: Mild hepatomegaly and steatosis. Gallbladder and bile ducts: Normal. No calcified stones. No ductal dilation. Pancreas: Normal. No ductal dilation. Spleen: Normal. No splenomegaly. Adrenal glands: Normal. No mass. Kidneys and ureters: Normal. No hydronephrosis. Stomach and bowel: Mild generalized nonspecific distension of small and large bowel loops. Appendix: No evidence of appendicitis. Intraperitoneal space: Unremarkable. No free air. No significant fluid collection. Vasculature: Atherosclerotic disease of the abdominal aorta. Lymph nodes: Unremarkable. No enlarged lymph nodes. Urinary bladder: Unremarkable as visualized. Reproductive: Status post hysterectomy with essentially stable soft tissue fullness at the vaginal cuff. Bones/joints: Unremarkable. No acute fracture. Soft tissues: Stable 1.1 x 0.7 cm midline ventral peritoneal soft tissue nodule. Several adjacent stable soft tissue nodules in the omentum. Probably stable or slightly enlarged soft tissue mass in the left rectus extending into the subcutaneous fat of the left lower quadrant abdominal wall. Subcentimeter soft tissue nodule at the umbilicus is unchanged. IMPRESSION: Status post hysterectomy with essentially stable soft tissue fullness at the vaginal cuff. Stable 1.1 x 0.7 cm midline ventral peritoneal soft tissue nodule. Several adjacent stable soft tissue nodules in the omentum. Probably stable or slightly enlarged soft tissue mass in the left rectus extending into the subcutaneous fat of the left lower quadrant abdominal wall. Subcentimeter soft tissue nodule at the umbilicus is unchanged. Electronically signed by: Maverick Mederos On 05/06/2021 10:56:33 AM
== END ==
LOC: M RAD 08:08
PROVIDERS: ATTEND Obstetrics & Gynecology Gynecologic Oncology
DX: C54.1 Malignant neoplasm of endometrium (principal)
CPT/HCPCS: 71260; 74177; Q9963; Q9967

== ENCOUNTER → 2021-11-03 | Outpatient (CLI) | payer MEDICARE, BC | LOC: M RAD 11:39 | PROVIDERS: ATTEND Obstetrics & Gynecology Gynecologic Oncology | DX: C54.1 Malignant neoplasm of endometrium (principal); C78.80 Secondary malignant neoplasm of unspecified digestive organ | CPT/HCPCS: 71260; 74177; Q9963; Q9967 ==

== ENCOUNTER → 2022-03-15 | Outpatient (CLI) | payer MEDICARE, BC | LOC: M RAD 12:21 | PROVIDERS: ATTEND Obstetrics & Gynecology Gynecologic Oncology | DX: C54.1 Malignant neoplasm of endometrium (principal); E03.2 Hypothyroidism due to medicaments and other exogenous substances; C78.6 Secondary malignant neoplasm of retroperitoneum and peritoneum | CPT/HCPCS: 74177; Q9963; Q9967 ==

== ENCOUNTER → 2022-09-29 | Outpatient (CLI) | payer MEDICARE, BC ==
[~2022-09-29] MED LIST changes: -GASTROGRAFIN SOLUTION 30ML (Q9963) As Ordered ONE
== END ==
LOC: M RAD 11:45
PROVIDERS: ATTEND Obstetrics & Gynecology Gynecologic Oncology
DX: C54.1 Malignant neoplasm of endometrium (principal); C78.6 Secondary malignant neoplasm of retroperitoneum and peritoneum; I10 Essential (primary) hypertension; R97.1 Elevated cancer antigen 125 [CA 125]
CPT/HCPCS: 74177; Q9967

== ENCOUNTER 2023-01-04 01:59 | Observation (INO) | payer MEDICARE, BC ==
[~2023-01-04] VITALS: Ht 167.6 cm; Wt 63.6 kg
[~2023-01-04 01:59] MED LIST changes: -ISOVUE-370 76% 100ML VIAL As Ordered ONE
[2023-01-04] MEDS ORDERED: ETOMIDATE INJ 20MG/10ML VIAL ONE (02:01)
[2023-01-04] MEDS ORDERED: ROCURONIUM BROMIDE 50MG/5ML VIAL ONE (02:01)
[2023-01-04] MEDS ORDERED: NS 1,000 ML IV ONE (02:25)
[2023-01-04 02:41] LABS: HEMATOCRIT 23.2 % (36.0-47.0); MEAN CORPUSCULAR HEMOGLOBIN 33.3 pg (27.0-33.0); MEAN CORPUSCULAR HGB CONC 29.3 g/dl (32.0-36.5); MEAN CORPUSCULAR VOLUME 113.7 fl (80.0-96.0); PLATELET COUNT, AUTOMATED 189 10^3/uL (150-450); RED BLOOD COUNT 2.04 10^6/uL (4.00-5.40); WHITE BLOOD COUNT 23.2 10^3/uL (4.0-10.0)
[2023-01-04 02:45] LABS: APPEARANCE, URINE TURBID (CLEAR); BACTERIA, URINE AUTO 1+ (NEGATIVE); BILIRUBIN, URINE AUTO NEGATIVE (NEGATIVE); BLOOD, URINE BLOOD 1+ (NEGATIVE); COLOR, URINE AMBER (YELLOW); GLUCOSE, URINE (UA) AUTO NEGATIVE (NEGATIVE); KETONE, URINE AUTO NEGATIVE (NEGATIVE); LEUKOCYTE ESTERASE, URINE AUTO 3+ (NEGATIVE); NITRITE, URINE AUTO NEGATIVE (NEGATIVE); PROTEIN, URINE AUTO 2+ mg/dL (NEGATIVE); RBC, URINE AUTO 35 /HPF (0-3); SPECIFIC GRAVITY URINE AUTO 1.016 (1.002-1.035); SQUAMOUS EPITHELIAL CELL UR AU 0 /HPF (0-6); UROBILINOGEN, URINE AUTO 0.2 mg/dL (0.0-2.0); WBC, URINE AUTO TNTC /HPF (0-3)
[2023-01-04] MEDS ORDERED: MORPHINE 2 MG/ML 1ML VIAL IV ONE ×2 (02:45→04:20)
[2023-01-04] MEDS ORDERED: MORPHINE 4 MG/ML 1ML VIAL IV ONE (02:50)
[2023-01-04 02:52] LABS: HEMOGLOBIN 6.8 g/dl (12.0-15.5)
[2023-01-04 02:54] LABS: INR 1.65; PROTHROMBIN TIME 19.8 SECONDS (12.5-14.5)
[2023-01-04 02:55] LABS: PARTIAL THROMBOPLASTIN TIME 35.6 SECONDS (24.8-34.2)
[2023-01-04] MEDS ORDERED: diazePAM 10MG/2ML SYRINGE IV ONE (02:55)
[2023-01-04 02:57] LABS: ALBUMIN 1.8 G/DL (3.2-5.2); ALKALINE PHOSPHATASE 552 U/L (46-116); ALT/SGPT 39 U/L (7.0-40); AST/SGOT 159 U/L (<34); BILIRUBIN,DIRECT 0.6 MG/DL (<0.4); BILIRUBIN,TOTAL 0.9 MG/DL (0.3-1.2); BLOOD UREA NITROGEN 65 MG/DL (9-23); CALCIUM LEVEL 9.5 MG/DL (8.3-10.6); CARBON DIOXIDE LEVEL 14 MMOL/L (20-31); CHLORIDE LEVEL 94 MMOL/L (98-107); CREATININE FOR GFR 2.68 MG/DL (0.55-1.30); GLOMERULAR FILTRATION RATE 18.9 (>45); GLUCOSE, FASTING 188 MG/DL (74-106); POTASSIUM SERUM 5.6 MMOL/L (3.5-5.1); SODIUM LEVEL 129 MMOL/L (136-145); TOTAL PROTEIN 5.2 G/DL (5.7-8.2)
[2023-01-04 03:22] LABS: PROCALCITONIN 15.25 ng/ml
[2023-01-04 03:23] LABS: ATYPICAL LYMPH 2 % (0-5); LYMPHOCYTES 11 % (16-44); METAMYELOCYTES 2 % (0-0); MONOCYTES 8 % (0-5); NEUTROPHILS 74 % (28-66); PLATELET ESTIMATE NORMAL (NORMAL)
[2023-01-04 03:24] LABS: ANISOCYTOSIS 2+; MICROCYTOSIS 1+; POLYCHROMASIA 1+
[2023-01-04 03:26] LABS: AMYLASE < 20 U/L (30-118)
[2023-01-04] MEDS ORDERED: LORazepam 2 MG/ML 1ML VIAL IV STA (04:23)
[2023-01-04] MEDS ORDERED: MORPHINE 2 MG/ML 1ML VIAL IV PRN ×2 (06:15→12:15)
[2023-01-04] MEDS ORDERED: ALBUTEROL SULFATE 2.5MG/0.5ML INH NEB SOLN NEB PRN (06:15)
[2023-01-04] MEDS ORDERED: ONDANSETRON 4MG 2ML VIAL IV PRN (06:15)
[2023-01-04] MEDS ORDERED: SCOPOLAMINE 1MG TRANSDERMAL PATCH TOP PRN (06:15)
[2023-01-04] MEDS ORDERED: LORazepam 2 MG/ML 1ML VIAL IV PRN ×2 (06:15→11:00)
[2023-01-04] MEDS ORDERED: BISACODYL 10MG SUPP PR PRN (06:15)
[2023-01-04 06:30] VITALS: BP 83/54; O2SAT 100
== END 2023-01-04 15:04 | disposition expired ==
LOC: EDBD 01:59 → M ED 01:59 → M ED INP 02:00 → ENRESERV 11:43 → M MSPAV 12:09
PROVIDERS: ADMIT Internal Medicine; ATTEND Internal Medicine
DX: I46.9 Cardiac arrest, cause unspecified (principal); A41.9 Sepsis, unspecified organism; J96.01 Acute respiratory failure with hypoxia; N17.9 Acute kidney failure, unspecified; E87.21 Acute metabolic acidosis; R74.01 Elevation of levels of liver transaminase levels; E87.5 Hyperkalemia; G93.41 Metabolic encephalopathy; R65.21 Severe sepsis with septic shock; C54.1 Malignant neoplasm of endometrium; R09.89 Other specified symptoms and signs involving the circulatory and respiratory systems; Z66 Do not resuscitate; Z51.5 Encounter for palliative care
CPT/HCPCS: 36415; 51702; 71045; 80048; 80076; 81001; 82150; 83605; 84145; 85025; 85610; 85730; 86140; 86850; 86900; 86901; 87040; 87088; 87186; 87635; 92950; 93005; 93041; 96374; 96375; 96376; 99285; G0378; J2060; J3360